=== PATIENT | female | born 1970 | race Caucasian/White ===

== ENCOUNTER 2017-04-03 13:17 | Emergency (ER) | payer MEDICARE, OTHER ==
--- NOTE | 2017-04-03 13:24 | ED Physician Documentation ---
Shoulder Injury/Pain - HISTORIAN Historian: patient - HPI Chief Complaint: Shoulder Injury/ Pain Additional Information: Right shoulder pain that started several days ago (states that she just moved)- had surgery in the past- describes as constant- took aleve at 8:30 this morning but no relief- has not taken anything else Onset: days ago Where: home Severity: moderate Pain: continueous Context: other (while moving and lifting boxes) Associated Symptoms: tingling, numbness - ROS CONST: no problems CVS/RESP: none GI/: denies: nausea ( ), vomiting, abdominal pain, problems urinating, other MS/SKIN/LYMPH: none - PAST HX Past History: other (depression, anxiety, borderline personality disorder, insomnia, PTSD, left wrist, choly, appy, , lt knee, 2 on right shoulder ) Allergies/Adverse Reactions: Allergies Allergy/AdvReac Type Severity Reaction Status Date / Time latex Allergy Hives Verified 04/03/17 13:29 morphine Allergy Vomiting Verified 04/03/17 13:29 Home Medications: Ambulatory Orders Medication Instructions Recorded Aripiprazole [Abilify] 5 mg PO DAILY 04/03/17 Carbamazepine [Tegretol] 400 mg PO BID 04/03/17 Desvenlafaxine Succinate [Pristiq 50 mg PO DAILY 04/03/17 ER] Prazosin HCl [Minipress] 4 mg PO HS 04/03/17 Quetiapine Fumarate [Seroquel] 50 mg PO HS PRN 04/03/17 Trazodone HCl [Trazodone HCl] 50 mg PO HS PRN 04/03/17 traMADol HCL [Ultram] 50 mg PO Q6H PRN #20 tablet 04/03/17 - SOCIAL HX Smoking History: cigarettes Alcohol Use: none Drug Use: methamphetamines, other (last used meth in January 2017) - FAMILY HX Family History: none - VITAL SIGNS Vital Signs: Vital Signs Temp Pulse Resp BP Pulse Ox 98.1 F 87 18 119/79 95 04/03/17 13:34 04/03/17 13:34 04/03/17 13:34 04/03/17 13:34 04/03/17 13:34 Progress - Results/Orders Results/Orders: Sling to wear as needed for pain ED Results Lab/Radiology - Orders Orders: ED Orders Category Date Time Status Sling to Affected Extremity 1T Care 04/03/17 13:45 Active Shoulder Injury Physical Exam - Physical Exam General Appearance: alert, mild distress Shoulder: soft-tissue tenderness, limited ROM, limited abduction, limited extension Upper Extremity: no injury below shoulder Neuro: sensation nml, motor nml Vascular: no vascular compromise, sensation nml, ROM limited by pain Skin: warm/dry, normal color Head/ENT: nml inspection Respiratory: breath sounds nml CVS: heart sounds normal, equal pulses, no murmur Abdomen: soft, normal bowel sounds Discharge Clincal Impression: Shoulder pain Prescriptions: traMADol HCL [Ultram] 50 mg PO Q6H PRN #20 tablet PRN Reason: Pain Referrals: Primary Doctor,No [Primary Care Provider] - 2 Days Additional Instructions: Along with shoulder pain discharge instructions: Continue with Aleve twice a day for pain Alternate Heat and Ice If pain continues follow up with primary care provide and consult with physical therapy List of local providers given to patient (since moving from [facility]) Home Medications: Ambulatory Orders Aripiprazole [Abilify] 5 mg PO DAILY 04/03/17 Carbamazepine [Tegretol] 400 mg PO BID 04/03/17 Desvenlafaxine Succinate [Pristiq ER] 50 mg PO DAILY 04/03/17 Prazosin HCl [Minipress] 4 mg PO HS 04/03/17 Quetiapine Fumarate [Seroquel] 50 mg PO HS PRN 04/03/17 Trazodone HCl [Trazodone HCl] 50 mg PO HS PRN 04/03/17 traMADol HCL [Ultram] 50 mg PO Q6H PRN #20 tablet 04/03/17 Condition: Good Disposition: 01 HOME, SELF-CARE Decision to Admit: NO Decision Time: 13:56
[2017-04-03 13:48] VITALS: BP 119/79
== END 2017-04-03 14:00 | disposition home or self-care (01) ==
LOC: ED 13:17
DX: M25.511 Pain in right shoulder (principal)
CPT/HCPCS: 99283